=== PATIENT | female | born 1930 | race Caucasian/White ===

== ENCOUNTER 2016-07-12 10:37 | Inpatient (IN) | payer MEDICARE ==
[~2016-07-12] VITALS: Ht 160 cm; Wt 54.7 kg
--- NOTE | ~2016-07-12 | ECH ---
Transthoracic Echocardiography Report (TTE) Demographics Patient Name AMRIT HOFF Date of Study 07/13/2016 Patient Number [id number] Visit Number [id number] Date of 1930 Room Number 402 Accession Number [id number] Gender Female Age 85 year(s) Referring Norris Fung MD Planer Hand Estrella Jamil Physician Moisés Telles MD RUST Physician Interpreting Lindsay Martines MD Stator Tester Physician Supervising Ordering Physician Norris Fung MD, MD/P Nurse Stress Program Strategist Conclusions Summary Technically good exam. The estimated left ventricular ejection fraction is 65%. Diastolic assessment reveals Grade I diastolic dysfunction. The interatrial septum appears aneurysmal. Informed consent was obtained, bubble study was done, there is no evidence for a PFO or ASD. No significant valvular abnormalities. Procedure Type of Study TTE procedure:Echo Complete SF. Procedure Date Date: 07/13/2016 Start: 08:22 AM Technical Quality: Good visualization Indications:CVA, Hypertension, Coronary artery disease and paroxysmal a-fib. Additional Indications:History of stent Appropriate Use Criteria: 9 Height: 63 inches Weight: 114 pounds BSA: 1.52 m Rhythm: NSR HR: 70 bpm BP: 96/47 mmHg M-Mode/2D Measurements LV Diastolic Dimension: 4.35 cm LV Systolic Dimension: 2.64 cm LV Septum Diastolic: 0.65 cm LV PW Diastolic: 0.69 cm AO Root Dimension: 2.55 cm Cardiac Output: 4.15 l/min LA Dimension: 2.99 cm Cardiac Index: 2.73 l/min*m RV Diastolic Dimension: 2.8 cm LA volume index: 29 ml/m LVOT: 1.74 cm LVOT VTI: 24.94 cm RV Base: 3 cm LV Stroke volume: 59.27 ml RV Mid: 1.9 cm LV Stroke volume index: 38.99 ml/m TAPSE: 2.4 cm TDI-S': 12 cm/s Doppler Measurements AV Peak Velocity: 1.3 m/s MV Peak E-Wave: 0.65 m/s AV Peak Gradient: 6.76 mmHg MV Peak A-Wave: 0.78 m/s AV Mean Gradient: 4.29 mmHg MV E/A Ratio: 0.83 LVOT Peak Velocity: 0.95 m/s MV P1/2t: 68.9 msec AV Area (Continuity):1.81 cm MV Deceleration Time: 273.5 msec TR Velocity:2.33 m/s MV Area (PHT): 3.19 cm TR Gradient:21.72 mmHg PV Peak Velocity: 0.71 m/s Estimated RAP:5 mmHg PV Peak Gradient: 2.04 mmHg Estimated RVSP: 27 mmHg Estimated PASP: 26.72 mmHg E' Septal Velocity: 0.06 m/s A' Septal Velocity: 0.1 m/s E' Lateral Velocity: 0.06 m/s A' Lateral Velocity: 0.11 m/s RA Area: 17.14 cm Findings Left Ventricle Normal left ventricle size and function. Diastolic assessment reveals Grade I diastolic dysfunction. Right Ventricle Normal right ventricle structure and function. Left Atrium Normal left atrial size. The interatrial septum appears aneurysmal. Informed consent was obtained, bubble study was done, there is no evidence for a PFO or ASD. Right Atrium Normal right atrial size. Mitral Valve Normal mitral valve structure and function. Trivial mitral regurgitation by color Doppler. Aortic Valve The aortic valve is mildly sclerotic. Tricuspid Valve Normal tricuspid valve structure and function. Mild tricuspid regurgitation by color Doppler. Normal pulmonary pressures. Pulmonic Valve The pulmonic valve is not well visualized. Pericardial Effusion No evidence of pericardial effusion. Miscellaneous Visualized portions of the aortic root and ascending aorta appear normal in size. Pleural Effusion No evidence of pleural effusion. Signature
[~2016-07-12 10:37] MED LIST: BETAPACE DPS120 MG PO; CALTRATE-600 W600 MG PO; COSOPT PLUS DPS10 ML OU; COZAAR DPS50 MG PO; HCTZ12.5 MG PO; VITAMIN D1000 UNI1 PO; XALATAN2.5 ML OU
--- NOTE | 2016-07-12 14:00 | ER ---
ADMIT: 07/12/2016 RM/LOC: 402 [facility] MR#: [id number] [id number] [place], [place] [address] AMRIT HOFF [address] [place] [address] Emergency Room Report SEX: F AGE: 85 : 1930 DATE: 07/12/2016 CHIEF COMPLAINT: Left-sided weakness and slurred speech. HISTORY OF PRESENT ILLNESS: The patient is an 85-year-old female, who was brought in by family with onset of left-sided weakness, left-sided facial droop and slurred speech that began approximately 20-30 minutes ago. She had been doing fine prior to that. She denies any recent illness. No falls. The patient denies any chest pain, shortness of breath, abdominal pain, change in bowel or bladder function. States, she is having some tingling on her left extremities also. REVIEW OF SYSTEMS: Ten-point review of systems done, otherwise, negative except as in the HPI. PAST MEDICAL HISTORY: Significant for coronary artery disease, hypertension, paroxysmal atrial fibrillation, CVA, hyperlipidemia, previous intraparenchymal hemorrhage secondary to trauma. PAST SURGICAL HISTORY: She has had a cholecystectomy. MEDICATIONS: See nurse's note. She is not currently on any blood thinners and does not take aspirin. ALLERGIES: SEE NURSE'S NOTE. SOCIAL HISTORY: Denies any smoking, drug, or alcohol use. PHYSICAL EXAMINATION: INITIAL VITAL SIGNS: 172/104, pulse 70, respirations 18, temp 95.8, saturations 99%. HEENT: Head is atraumatic. Pupils are equal, round, reactive to light. Left side of face reveals she does have some facial droop and her speech is slurred. Trachea is midline. The patient is protecting her airway. No signs of trauma to her face. HEART: Regular rate and rhythm. LUNGS: Clear to auscultation. ABDOMEN: Soft. EXTREMITIES: She has 5/5 strength on the right upper and right lower extremity. She has very slight decreased strength at least 4/5 on her left upper and left lower extremity. Skin is warm and dry. She has good pulses in all [address] head shows nothing acute. She does have age-related changes and signs of previous head bleed which had evolved somewhat from her previous study but again nothing acute. CBC is unremarkable. Chemistry shows sodium of 141, potassium 3.5, glucose 102. Bedside glucose was 103 on arrival. INR is less than 1. EKG shows sinus rhythm, rate of 63. No signs of ST-elevation or acute AL. ADMIT: 07/12/2016 RM/LOC: 402 [facility] MR#: [id number] [address] [address] AMRIT HOFF [place] [address] [place] [address] Emergency Room Report SEX: F AGE: 85 : 1930 EMERGENCY DEPARTMENT COURSE: The patient arrived. We had to assist the family getting the patient out of the car because she could not stand. Based on the onset of symptoms and her complaints, we did go ahead and page us out as a stroke alert and started our stroke routine workup. On history, it was found the patient had a previous intraparenchymal bleed, so she was not a tPA candidate. I did speak to Dr. Curiel and made him aware of the patient. The patient seems like she has had some mild improvement in her left-sided weakness of her extremities since she has been in the ER. She was hypertensive, so she was given Vasotec in the Emergency Department and we decided to give her a dose of full strength aspirin. She will be admitted to Dr. Pisano's service and he saw the patient in the Emergency Department. The patient is admitted in a somewhat improved condition and stable at this time. DIAGNOSES: 1. Cerebrovascular accident. 2. Left-sided weakness. 3. Slurred speech. Mir Cortez MD/ adela JOB #: [id number] CC: Max Pisano MD, Attending Physician Max Pisano MD, Family Physician
--- NOTE | 2016-07-18 11:03 | CO ---
ADMIT: 07/12/2016 RM/LOC: 402 [facility] MR#: [id number] [address] [address] AMRIT HOFF [address] [place] [address] Consultation SEX: F AGE: 85 : 1930 DATE OF CONSULTATION: 07/12/2016 ATTENDING PHYSICIAN: Max Pisano CONSULTING PHYSICIAN: Elfego Curiel MD REASON FOR CONSULTATION: Ischemic stroke. HISTORY OF PRESENT ILLNESS: The patient is an 85-year-old woman with history of paroxysmal atrial fibrillation, hypertension, hyperlipidemia, intraparenchymal hemorrhage that was traumatic while she was on full anticoagulation with Xarelto in June 2015 who suddenly developed left-sided weakness at around 10 a.m. on 07/12/2016. She was actually going to the bathroom and fell. Her son heard a crash and helped her to stand up. She was obviously weak in her left face, had slurred speech, left arm and left leg. Due to the history of intracranial hemorrhage, the patient was not a candidate for tPA administration and she was admitted for regular stroke workup. PAST MEDICAL HISTORY: Again as mentioned; hyperlipidemia, hypertension, atrial fibrillation currently not on any anticoagulation because of the past hemorrhage. SOCIAL HISTORY: No alcohol, no smoking. FAMILY HISTORY: Significant for diabetes, coronary artery disease, and stroke. OUTPATIENT MEDICATIONS: Include: 1. Potassium chloride. 2. Hydrochlorothiazide. 3. Losartan. 4. Sotalol. 5. Calcium. 6. Vitamin D3. 7. Dorzolamide. 8. Timolol. 9. Alphagan. 10.Brimonidine. 11.Prednisolone. 12.Vigamox. 13.Bromfenac. ALLERGIES: THE PATIENT IS NOT ALLERGIC TO ANY MEDICATION. REVIEW OF SYSTEMS: All systems reviewed, negative except as per HPI. CARDIOVASCULAR: The patient has an atrial fibrillation, has a history of syncope. HEENT: She has a glaucoma, cataract history. NEUROLOGICAL: History of ICH with residual mild left-sided weakness. ADMIT: 07/12/2016 RM/LOC: 402 [facility] MR#: [id number] [address] [address] AMRIT HOFF [address] [place] [address] Consultation SEX: F AGE: 85 : 1930 PHYSICAL EXAMINATION: VITAL SIGNS: Temperature 97.5, heart rate 67, respirations 16, blood pressure 152/69, and saturation 96% on room air. GENERAL: The patient appears to be in no acute discomfort. HEAD: Normocephalic. NECK: Supple. CHEST: Normal respiratory raises. CARDIOVASCULAR: Regular rate and rhythm. ABDOMEN: Soft, nondistended. EXTREMITIES: No clubbing or cyanosis. NEUROLOGICAL EXAM: The patient is awake, alert, and appropriately oriented. There is mild dysarthria but no aphasia. Fund of knowledge seems to be intact, memory as well. 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 Pupils are equal, reactive. Extraocular muscles are intact. Facial sensation is normal. She has mild left facial weakness in lower face. Hearing to voice is fairly intact. Uvula midline. Palatal arch is symmetric. Shoulder shrug symmetric. Tongue is midline, fairly moveable. Motor examination reveals full strength throughout. No drift. Fine motor movements appear to be intact. Sensory to touch nonlateralizing. She does, however, have neglect on the left side. End extension with double simultaneous stimulation. Reflexes are brisk and symmetric in her upper extremities, reduced in knees and ankles. Babinski extensor on the left side. By the time of the initial consultation I did not have results of the MRI available yet. LABORATORY STUDIES: Reviewed. ASSESSMENT: 1. Ischemic stroke. 2. History of intracranial hemorrhage, traumatic while on anticoagulation. 3. Hypertension. 4. Hyperlipidemia. PLAN: We will obtain brain MRI, stroke type, if embolic in nature, I think the anticoagulation can be restarted in regard to her previous traumatic hemorrhage. We will also obtain further workup including TTE and carotid Doppler. The patient will be continued on aspirin for now. The patient will be seen by Rehab Services. Elfego Curiel MD/ adela JOB #: [id number] CC: Max Pisano, Attending Physician Max Pisano, Family Physician
[2016-07-28] MEDS ORDERED: MICRO-K DPS10 MEQ PO (10:51)
[2016-07-28] MEDS ORDERED: SOTALOL120 MG PO (10:51)
[2016-07-28] MEDS ORDERED: COZAAR DPS50 MG PO (10:51)
[2016-07-28] MEDS ORDERED: HCTZ12.5 MG PO (10:51)
[2016-07-28] MEDS ORDERED: ALPHAGAN-P5 ML OS (10:52)
[2016-07-28] MEDS ORDERED: CALCIUM600 MG PO (10:52)
[2016-07-28] MEDS ORDERED: VITAMIN D-32000 UNI1 PO (10:52)
[2016-07-28] MEDS ORDERED: COSOPT EYE DROP10 ML OU (10:52)
[2016-07-28] MEDS ORDERED: PRED FORTE 1% DP5 ML OU (10:54)
[2016-07-28] MEDS ORDERED: ASA325 MG PO (10:54)
[2016-07-28] MEDS ORDERED: PRAVACHOL40 MG PO (10:55)
[2016-09-21] MEDS ORDERED: NORVASC2.5 MG PO (15:20)
[2016-09-21] MEDS ORDERED: PEPCID DPS20 MG PO (15:20)
[2016-09-21] MEDS ORDERED: COUMADIN2.5 MG PO (15:20)
--- NOTE | 2016-09-26 10:33 | DS ---
ADMIT: 07/12/2016 RM/LOC: 402 [facility] MR#: [id number] [address] [address] AMRIT EDMOND [address] [place] [address] Discharge Summary SEX: F AGE: 85 : 1930 ADMISSION DATE: 07/12/2016 DISCHARGE DATE: 07/15/2016 DISCHARGE DIAGNOSES: 1. Lacunar infarct right basal ganglia. 2. 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 3. Hypertension. 4. History of paroxysmal atrial fibrillation. 5. Memory loss. 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 She made a slow and steady recovery, but presented with the onset of acute left hemiplegia, left upper arm greater than left lower leg. This was an ischemic/embolic infarct, but she was relatively contraindicated for anticoagulation therapy. She presented in normal sinus rhythm, but had a history of paroxysmal atrial fibrillation controlled on sotalol. Her other history includes coronaryartery disease, status post PCI, prior hypertension, hyperlipidemia. At the time of presentation, her blood pressure was 154/84 and prior days blood pressure was 157/87, but otherwise had normal blood pressures at home. She presented with left facial droop, left arm, and leg weakness arm more than leg. She did not manifest any swallowing issues. MRI and CT scan were as reported above and hemoglobin stable at 12.6, and there was no manifest coagulopathy. Chemistry showed a minimal hypokalemia. B12 and folate, CRP, hemoglobin A1c, and thyroid were likewise normal. HOSPITAL COURSE: She came in with an acute onset of a stroke and echocardiogram, ultrasound of the carotids, EKG all were unremarkable confirming sinus rhythm and preserved LV function without evident clot. There was no evidence of a PFO or ASD or significant valvular abnormalities. Because of her prior bleed, family was uncomfortable with any consideration of anticoagulation. Aspirin was chosen as the anticoagulation of choice, and she was seen in consultation with Dr. Curiel who was not immediately available, but reviewed her clinical course somewhat later. Her blood pressure was labile consistent with her outpatient history, and she had the slow gain of left upper extremity strengthening and improvement in the left lower extremity. ADMIT: 07/12/2016 RM/LOC: 402 [facility] MR#: [id number] [address] [address] AMRIT EDMOND [address] [place] [address] Discharge Summary SEX: F AGE: 85 : 1930 Adjustments in blood pressure medicines were undertaken and she was ultimately transferred to inpatient rehab on: 1. Aspirin 325 mg daily. 2. Betapace 60 mg b.i.d. 3. Cozaar 100 mg daily. 4. Hydrochlorothiazide 12.5 daily. 5. Micro-K 10 mEq p.o. b.i.d. 6. Pepcid 20 mg b.i.d. 7. Pravachol 40 mg at bedtime. 8. Vitamin D 1000 units daily. 9. Eyedrops for her glaucoma. We will continue to follow with Dr. Espinoza in the rehab unit. Max Pisano MD/ adela JOB #: [id number] CC: Max Pisano MD, Attending Physician Max Pisano MD, Family Physician
== END 2016-07-15 14:00 | disposition short-term general hospital (02) | DRG 65 ==
LOC: ER 10:37 → 4PCU 11:45
PROVIDERS: ADMIT Internal Medicine
DX: I63.9 Cerebral infarction, unspecified (principal); G81.94 Hemiplegia, unspecified affecting left nondominant side; G93.89 Other specified disorders of brain; I48.0 Paroxysmal atrial fibrillation; R47.81 Slurred speech; I25.10 Atherosclerotic heart disease of native coronary artery without angina pectoris; I10 Essential (primary) hypertension; E78.5 Hyperlipidemia, unspecified; I69.398 Other sequelae of cerebral infarction

== ENCOUNTER 2016-07-15 10:57 | Inpatient (IN) | payer MEDICARE ==
[~2016-07-15] VITALS: Ht 160 cm; Wt 55.1 kg
--- NOTE | 2016-07-26 18:01 | NUR ---
DAY SHIFT SUMMARY: EATS W/DENTURES, SEE OT FIM/NOTES FOR GROOMING,SHOWER, DRESSING AND SHOWER TRANSFER. TOILETING IS SUPERVISED, INDPENDENT W/ BLADDER AND BOWEL MANAGEMENT. MIN ASSIST FOR TRANSFER BED/CHAIR AND AMBULATION
[2016-07-28] MEDS ORDERED: HCTZ12.5 MG PO (10:51)
[2016-07-28] MEDS ORDERED: COZAAR DPS50 MG PO (10:51)
[2016-07-28] MEDS ORDERED: MICRO-K DPS10 MEQ PO (10:51)
[2016-07-28] MEDS ORDERED: SOTALOL120 MG PO (10:51)
[2016-07-28] MEDS ORDERED: ALPHAGAN-P5 ML OS (10:52)
[2016-07-28] MEDS ORDERED: VITAMIN D-32000 UNI1 PO (10:52)
[2016-07-28] MEDS ORDERED: CALCIUM600 MG PO (10:52)
[2016-07-28] MEDS ORDERED: COSOPT EYE DROP10 ML OU (10:52)
[2016-07-28] MEDS ORDERED: ASA325 MG PO (10:54)
[2016-07-28] MEDS ORDERED: PRED FORTE 1% DP5 ML OU (10:54)
[2016-07-28] MEDS ORDERED: PRAVACHOL40 MG PO (10:55)
--- NOTE | 2016-09-07 15:10 | DS ---
ADMIT: 07/15/2016 RM/LOC: 601 [facility] MR#: [id number] [address] [address] AMRIT HOFF [address] [place] [address] General Discharge Summary SEX: F AGE: 85 : 1930 ADMISSION DATE: 07/15/2016 DISCHARGE DATE: 07/27/2016 DISCHARGE DIAGNOSIS: Stroke 01.1, left body involvement, right brain, I63.9, cerebral infarction unspecified, onset 07/12/2016, comorbid conditions per initial H and P. Other diagnoses per hospital course below. HOSPITAL COURSE: Please see my initial H and P for details prior to transfer to IRU. Telemetry was continued without saline lock. Already on heparin for DVT prophylaxis. Lab was monitored regularly. Bowel regimen and pain regimen were adjusted. Dietitian followed to optimize nutrition. Pharmacy followed to optimize medication management. PVR 33 within normal limits. Pepcid adjusted to daily for GERD, Pravachol daily for hyperlipidemia. Allowed to shower without telemetry. Pepcid decreased to 10 mg for GERD. Vitamin D deficiency replaced. Used cervical massage, muscle stretching, and Tens p.r.n. neck pain. Sports cream also for the neck pain. Blood pressure and heart rate rechecked due to hypertension, blood pressure labile. PVRs normal. Held Norvasc per parameters per Dr. Pisano. Tele discontinued on 07/22/2016, after discussing with Dr. Pisano. Pepcid discontinued, no longer necessary for GERD. Norvasc adjusted to b.i.d. for hypertension. Heparin discontinued. Switched aspirin at 325 mg for DVT prophylaxis. Norvasc discontinued due to nonspecific low blood pressure readings and was well controlled on the medication she was on. The patient medically stable at the time of discharge. Please see IRU interdisciplinary discharge summary details regarding progress in therapy. DISCHARGE DISPOSITION: Home with her son Alejandro, will continue outpatient PT and OT and [facility] in [place]. Has all DME needed, son provided transport. DISCHARGE MEDICATIONS: Please see discharge med rec. FOLLOWUP: Dr. Pisano, 08/09/2016; Dr. Curiel, 09/08/2016; Dr. Calhoun as needed. Jack Espinoza MD/ adela JOB #: [id number] CC:
[2016-09-21] MEDS ORDERED: NORVASC2.5 MG PO (15:20)
[2016-09-21] MEDS ORDERED: COUMADIN2.5 MG PO (15:20)
[2016-09-21] MEDS ORDERED: PEPCID DPS20 MG PO (15:20)
== END 2016-07-27 12:35 | disposition home or self-care (01) | DRG 57 ==
LOC: 6IRU 14:00
PROVIDERS: ADMIT Physical Medicine & Rehabilitation
DX: I69.354 Hemiplegia and hemiparesis following cerebral infarction affecting left non-dominant side (principal); R41.4 Neurologic neglect syndrome; I48.0 Paroxysmal atrial fibrillation; S06.9X0S Unspecified intracranial injury without loss of consciousness, sequela; I10 Essential (primary) hypertension; E55.9 Vitamin D deficiency, unspecified; R13.10 Dysphagia, unspecified; I69.322 Dysarthria following cerebral infarction; D64.9 Anemia, unspecified; I69.392 Facial weakness following cerebral infarction; R41.0 Disorientation, unspecified; R27.8 Other lack of coordination; R26.89 Other abnormalities of gait and mobility; E78.5 Hyperlipidemia, unspecified; M54.2 Cervicalgia; H40.9 Unspecified glaucoma; I25.10 Atherosclerotic heart disease of native coronary artery without angina pectoris; W19.XXXS Unspecified fall, sequela; Z91.81 History of falling; Z79.01 Long term (current) use of anticoagulants; Z87.891 Personal history of nicotine dependence

== ENCOUNTER 2016-09-17 11:04 | Inpatient (IN) | payer MEDICARE ==
[~2016-09-17] VITALS: Ht 160 cm; Wt 52.9 kg
[~2016-09-17 11:04] MED LIST changes: +ALPHAGAN-P5 ML OS; +ASA325 MG PO; +CALCIUM600 MG PO; +COSOPT EYE DROP10 ML OU; +MICRO-K DPS10 MEQ PO; +PRAVACHOL40 MG PO; +PRED FORTE 1% DP5 ML OU; +SOTALOL120 MG PO; +VITAMIN D-32000 UNI1 PO
[2016-09-21] MEDS ORDERED: NORVASC2.5 MG PO (15:20)
[2016-09-21] MEDS ORDERED: PEPCID DPS20 MG PO (15:20)
[2016-09-21] MEDS ORDERED: COUMADIN2.5 MG PO (15:20)
--- NOTE | 2016-09-24 17:48 | ER ---
ADMIT: 09/17/2016 RM/LOC: ER [facility] MR#: [id number] [address] [address] AMRIT HOFF [address] [place] [address] Emergency Room Report SEX: F AGE: 86 : 1930 DATE: 09/17/2016 ADDENDUM: An 86-year-old white female coming in with left-sided weakness. Actually, she can move everything, but her gait is unstable. Initially had a stroke before, I think in November and then she recently had a little bit of a relapse in June, ended up in ICU, her symptoms resolved. Both times, the family has decided not to use the lytic therapy because evidently she had a recent bleed prior to all this. So, she is not a candidate for lytic therapy nor did the family wanted. At this time, a CT of her head showed the old infarct. Her CBC, chemistry, INR, UA, tox screen as well as EKG, there is nothing acute. However, she is really unable to walk which she was doing before. I spoke Dr. Pisano, he will need to admit her for at least a TIA with MCA syndrome and still not entirely resolved at this time. Also, with a rule out new CVA as well. Reji Hunter MD/ adela JOB #: [id number] CC: Reji Hunter MD, Attending Physician Max Pisano MD, Family Physician
--- NOTE | 2016-10-20 10:49 | HP ---
ADMIT: 09/17/2016 RM/LOC: 424 [facility] MR#: [id number] [address] [address] AMRIT HOFF [address] [place] [address] History and Physical SEX: F AGE: 86 : 1930 DATE OF SERVICE: CHIEF COMPLAINT: Possible stroke. CLINICAL HISTORY: Amrit awoke this morning, was not able to stand. She normally has been able to stand and has been doing well at [facility] post stroke. Amrit has had a history of paroxysmal atrial fibrillation, a fall on anticoagulation with GETTER OPERATOR bleed and subsequent CVA. Family made the conscious decision to hold back on any significant anticoagulation favoring aspirin 325 mg alone. They understood solely the risk of for having an additional spell. The rest of her history is otherwise inclusive of prior rehabilitation both inpatient and recently outpatient. She had been doing well. Went to bed last night, but early this morning, her son who lives with her was not able to get her stand. They reassessed the situation and ultimately brought her to the emergency room where a CT scan (verbal report from Dr. Scales) was unremarkable for any sign of stroke, bleed, etc. Examination shows a very subtle decreased strength in the left leg, which is very difficult to actually measure at the bedside. She is awake, alert, understands her situation, answers questions appropriately. Her blood pressure and vital signs are otherwise unremarkable. Last week, she saw her addiction nurse who encouraged her to go on full anticoagulation with the family again deferred and chose to continue with a single adult aspirin per day. It is unclear with that recommendation was based upon increasing atrial fibrillation burden. PAST MEDICAL HISTORY: Please see the patient's old charts. Illnesses: Prior fall with GETTER OPERATOR bleed, history of hypertension, hyperlipidemia, coronary artery disease, status post stent, and paroxysmal atrial fibrillation. She does not smoke or drink and lives with her son. REVIEW OF SYSTEMS: She has not had any recent chest pain, shortness of breath. She has not been aware of any palpitations and went to bed last night feeling well. She has not had any GI or difficulties, including no swallowing difficulties and she was able to eat and swallow her medications this morning. PHYSICAL EXAMINATION: GENERAL: Physical examination reveals a white female, ADMIT: 09/17/2016 RM/LOC: 424 [facility] MR#: [id number] [address] [address] AMRIT HOFF [address] [place] [address] History and Physical SEX: F AGE: 86 : 1930 in no acute distress. Pleasant and cooperative. Tire Service Supervisor strength right is normal. Right leg strength is normal. Left leg strength decreased, but stable secondary to prior stroke. Left leg strength appears to be stable with respect to recovery from a prior stroke. She was not gotten up to ambulate, but there was, in my opinion, a slight decrease in strength in the left foot with dorsiflexion. LABORATORY DATA: Laboratory results otherwise unremarkable. An EKG shows normal sinus rhythm. IMPRESSION: 1. 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 2. Minimal neurological deficits currently over baseline. 3. Hypertension. 4. Paroxysmal atrial fibrillation. 5. Hyperlipidemia. 6. Prior fall with GETTER OPERATOR bleed. Given the window of time and her prior GETTER OPERATOR bleed, family wishes not to proceed with any thrombolytic therapy given the very subtle loss of strength, however, this at least is a TIA, but I suspect a slight stroke. We will start her on subcu heparin and graduate to Coumadin which she took successfully for years. This has been discussed with the patient and her daughter who are in agreement with proceeding with anticoagulation in this form. She has already taken her aspirin adult 325 today and we will discontinue it after today's dose and monitor her carefully. We will keep her at bedrest, watch her blood pressure, and start physical therapy and occupational therapy. Given that she was able to take her medicines and eat this morning, I do not think that there is any material risk for swallowing issues. Max Pisano MD/ adela JOB #: [id number] CC: Max Pisano, Attending Physician Max Pisano, Family Physician . [facility]
--- NOTE | 2016-12-05 13:37 | DS ---
ADMIT: 09/17/2016 RM/LOC: [address] [facility] MR#: [id number] [address] [id number] AMRIT HOFF [address] [place] [address] Discharge Summary SEX: F AGE: 86 : 1930 ADMISSION DATE: 09/17/2016 DISCHARGE DATE: 09/20/2016 DISMISSAL DIAGNOSES: 1. Recurrent cerebrovascular accident. 2. History of prior central nervous system traumatic bleed. 3. Paroxysmal atrial fibrillation. 4. Hyperlipidemia. 5. Hypertension. Amrit was admitted to the hospital on aspirin therapy with recurrent CVA. She was very functional after completing her IRU stay and subsequently went home, but when she woke in the morning, she had a great deal of difficulty using her left side, she was weak, could not stand, and had a marked difference in her clinical course. She was not deemed a thrombolytic candidate due to her other issues including underlying atrial fibrillation and the timing. She had made a conscious decision with her family's delinquency counselor not to go on systemic anticoagulation last time around and this was a calculated decision based upon her prior fall, [employer] bleed, and her known intermittent paroxysmal atrial fibrillation. With the onset of the stroke, however, it was obvious that she needed to be on some form of systemic anticoagulation. The family chose Coumadin as she had previous a good experience with such over number of years. She went through the usual evaluation, therapies, and was dismissed with controlled blood pressure and resumption of her Pravachol. DISCHARGE MEDICATIONS: Her dismissal medications included: 1. Pravachol 40 mg daily. 2. Betapace 60 mg p.o. b.i.d. 3. Cozaar 100 mg daily. 4. Hydrochlorothiazide 12.5 daily. 5. Micro-K 10 mEq daily. 6. Pepcid 20 p.o. b.i.d. 7. Cosopt plus 1 drop both eyes b.i.d. She will see us in followup and continue her therapies as an outpatient. At the end of the hospitalization, she had returned much of the lost function in her left arm and her balance was improving but had not returned to her previous baseline state. Max Pisano MD/ adela JOB #: [id number] CC: Max Pisano MD, Attending Physician Max Pisano MD, Family Physician
== END 2016-09-20 15:50 | disposition home or self-care (01) | DRG 65 ==
LOC: ER 11:04 → 4PCU 14:10
PROVIDERS: ADMIT Internal Medicine
DX: I63.10 Cerebral infarction due to embolism of unspecified precerebral artery (principal); G81.94 Hemiplegia, unspecified affecting left nondominant side; I48.0 Paroxysmal atrial fibrillation; I25.10 Atherosclerotic heart disease of native coronary artery without angina pectoris; I10 Essential (primary) hypertension; E78.5 Hyperlipidemia, unspecified; Z95.5 Presence of coronary angioplasty implant and graft; Z79.82 Long term (current) use of aspirin